=== PATIENT | female | born 1990 | race Two or more races ===

== ENCOUNTER 2019-06-16 22:25 | Emergency (ER) | payer OTHER ==
[~2019-06-16] VITALS: Ht 157.5 cm; Wt 61.2 kg
--- NOTE | 2019-06-16 22:25 | NUR ---
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 USED ALBUTEROL INHALER WITHOUT ANY RELIEF. PT APPEARS VERY ANXIOUS. TO ER BED 7, HOOKED TO MONITOR, CHANGED TO HOSP GOWN, WARM BLANKET PROVIDED, AWAITING MD BRAGA.
--- NOTE | 2019-06-16 23:33 | NUR ---
Patient discharged to home in stable condition. Written and verbal after care instructions given. Patient verbalizes understanding of instruction. Pt ambulatory with a steady gait
[2019-06-16 23:34] VITALS: BP 101/69
== END 2019-06-16 23:34 | disposition home or self-care (01) ==
LOC: ER 22:26
DX: F41.9 Anxiety disorder, unspecified (principal); J45.909 Unspecified asthma, uncomplicated; Z88.1 Allergy status to other antibiotic agents